=== PATIENT | male | born 2000 | race Caucasian/White ===

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

== ENCOUNTER 2019-05-10 18:31 | Emergency (ER) | payer MEDICAID ==
[2019-05-10] MEDS ORDERED: DEXAMETHASONE SOD PHOS INJ 10 MG/1 ML VIAL IV ONE (20:30)
[2019-05-10] MEDS ORDERED: NORMAL SALINE 1000 ML 1,000 ML IV ONE (20:31)
[2019-05-10] MEDS ORDERED: KETOROLAC TROMETHAMINE INJ/PF 30 MG/1 ML SDV IV ONE (20:31)
[2019-05-10] MEDS ORDERED: ONDANSETRON HCL INJ/PF 4 MG/2 ML SDV IV ONE (20:31)
--- NOTE | 2019-05-10 20:33 | ER Document Report ---
ED General - General Chief Complaint: Sore Throat Stated Complaint: SORE THROAT Time Seen by Provider: 05/10/19 20:05 Notes: Patient is a 18-year-old male that comes emergency department for chief complaint of sick symptoms since yesterday. He states that it started with a sore throat and he also had pain in his right ear, now he also complains of pain in the front of his neck, he does have pain with swallowing, and he has been vomiting. He states that he vomited a lot yesterday but this is significantly reduced today although he still has not been able to eat anything. He states he has been able to drink fluids but every time he tries to lay he vomits. He denies pain in his abdomen at this time. Denies shortness of breath with co ughing. He denies headache. He denies fever. Father at bedside. No obvious sick contacts. No past medical history reported. TRAVEL OUTSIDE OF THE [place] IN LAST 30 DAYS: No - Related Data Allergies/Adverse Reactions: No Known Allergies Allergy (Verified 05/10/19 18:32) Past Medical History - General Information source: Patient - Social History Smoking Status: Current Some Day Smoker Chew tobacco use (# tins/day): No Frequency of alcohol use: None Drug Abuse: None Lives with: Family Family History: Reviewed & Not Pertinent Patient has suicidal ideation: No Patient has homicidal ideation: No Pulmonary Medical History: Reports: Hx Asthma Renal/ Medical History: Reports: Hx Hydrocele. Denies: Hx Peritoneal Dialysis Musculoskeletal Medical History: Reports Hx Musculoskeletal Trauma Psychiatric Medical History: Reports: Hx Attention Deficit Hyperactivity Disorder Past Surgical History: Reports: Hx Testicular Surgery - Removal bilaterally - Immunizations Immunizations up to date: Yes Hx Diphtheria, Pertussis, Tetanus Vaccination: Yes Review of Systems - Review of Systems Constitutional: See HPI EENT: See HPI Cardiovascular: No symptoms reported Respiratory: No symptoms reported Gastrointestinal: See HPI Genitourinary: No symptoms reported Male Genitourinary: No symptoms reported Musculoskeletal: No symptoms reported Skin: No symptoms reported Hematologic/Lymphatic: No symptoms reported Neurological/Psychological: No symptoms reported Physical Exam - Vital signs Vitals: Temp Pulse Resp BP Pulse Ox 98.0 F 103 H 16 107/61 98 05/10/19 18:40 05/10/19 18:40 05/10/19 18:40 05/10/19 18:40 05/10/19 18:40 - Notes Notes: GENERAL: Alert, interacts well. No acute distress. HEAD: Normocephalic, atraumatic. EYES: Pupils equal, round, and reactive to light. Extraocular movements intact. ENT: Oral mucosa moist, tongue midline. Exudative pharyngitis worse on the left. Airway patent. Nares patent, no nasal septal hematoma, TM's intact. NECK: Full range of motion. Supple. Trachea midline. Anterior cervical adenopathy bilaterally, normal submandibular area. LUNGS: Clear to auscultation bilaterally, no wheezes, rales, or rhonchi. No respiratory distress. HEART: Regular rate and rhythm. No murmur ABDOMEN: Soft, non-tender. Non-distended. Bowel sounds present in all 4 quadrants. GENITOURINARY: Deferred EXTREMITIES: Moves all 4 extremities spontaneously. No edema, normal radial and dorsalis pedis pulses bilaterally. No cyanosis. BACK: no cervical, thoracic, lumbar midline tenderness. No saddle anesthesia, normal distal neurovascular exam. Moves all extremities in full range of motion. NEUROLOGICAL: Alert and oriented x3. Normal speech. Cranial nerves II through XII grossly intact. PSYCH: Normal affect, normal mood. SKIN: Warm, dry, normal turgor. No rashes or lesions noted. Course - Re-evaluation Re-evalutation: Patient with obvious exudative pharyngitis on exam, clear airway, no evidence of abscess. Strep is negative, mono negative, however CBC shows leukocytosis with elevation of neutrophils. No bandemia. Unremarkable work-up and evaluation otherwise. Abdomen is soft and benign. Patient was given IV fluids, dexamethasone, Toradol. He states he feels great on reevaluation. He is able to tolerate p.o. without difficulty. I definitely do not suspect acute abdomen based on his presentation. Discussed options. Because of the leukocytosis, anterior cervical adenopathy, lack of splenomegaly, and general appearance of strep we did agree to treat patient with antibiotics. Discussed follow-up and return precautions with patient and father at bedside. They state understanding and agreement. - Vital Signs Vital signs: Temp Pulse Resp BP Pulse Ox 99.5 F 90 15 109/60 98 05/10/19 22:41 05/10/19 22:41 05/10/19 22:41 05/10/19 22:41 05/10/19 22:41 - Laboratory Result Diagrams: 05/10/19 21:05 05/10/19 21:05 Laboratory results interpreted by me: 05/10/19 21:05 WBC 12.4 H Absolute Neuts (auto) 9.2 H Discharge - Discharge Clinical Impression: Exudative pharyngitis, Anterior cervical lymphadenopathy Vomiting Qualifiers: Vomiting type: unspecified Vomiting Intractability: non-intractable Nausea presence: without nausea Qualified Code(s): R11.11 - Vomiting without nausea Condition: Stable Disposition: HOME, SELF-CARE Additional Instructions: Your evaluation shows a throat infection, based on your work-up I suspect this is bacterial, as result we are treating with Keflex for this. You have been treated with dexamethasone as well which should last in your system for several days. Take Tylenol and ibuprofen for pain, hydrate, and rest. Symptoms should resolve with time. Follow-up with primary care. Return if you worsen including spiking fever, difficulty swallowing or breathing, return vomiting, or any other concerning or worsening symptoms. Prescriptions: Cephalexin Monohydrate [Keflex 500 mg Capsule] 500 mg PO BID 10 Days #20 capsule
[2019-05-10 21:25] LABS: ABSOLUTE LYMPHOCYTES (AUTO) 2.1 10^3/uL (0.5-4.7); ABSOLUTE NEUT (AUTO) 9.2 10^3/uL (1.7-8.2); BASOPHILS % (AUTO) 0.4 % (0-2); EOSINOPHILS % (AUTO) 0.4 % (0-6); HEMATOCRIT 40.3 % (37.9-51.0); MEAN CORPUSCULAR HGB CONC 34.9 g/dL (32.0-36.0); MEAN CORPUSCULAR VOLUME 83 fl (80-97); MONOCYTES % (AUTO) 8.2 % (3-13); PLATELET COUNT 229 10^3/uL (150-450); RED BLOOD COUNT 4.84 10^6/uL (4.35-5.55); RED CELL DISTRIBUTION WIDTH 13.3 % (11.5-14.0); TOTAL CELLS COUNTED % (AUTO) 100 %; WHITE BLOOD COUNT 12.4 10^3/uL (4.0-10.5)
[2019-05-10 21:43] LABS: ANION GAP 15 (5-19); BLOOD UREA NITROGEN 10 mg/dL (7-20); CARBON DIOXIDE 25 mmol/L (22-30); CHLORIDE 99 mmol/L (98-107); GLUCOSE 80 mg/dL (75-110); POTASSIUM 3.8 mmol/L (3.6-5.0)
[2019-05-10] MEDS ORDERED: CEPHALEXIN 500 MG CAPSULE PO ONE (22:12)
[2019-05-10 22:44] VITALS: BP 109/60
== END 2019-05-10 22:40 | disposition home or self-care (01) ==
LOC: ER 18:31
DX: J02.9 Acute pharyngitis, unspecified (principal); R59.0 Localized enlarged lymph nodes; R11.11 Vomiting without nausea; H92.01 Otalgia, right ear; F17.200 Nicotine dependence, unspecified, uncomplicated
CPT/HCPCS: 36415; 87070; 87880; 85025; 86308; 80048; J1885; J2405; J7030; J1100

== ENCOUNTER 2019-09-21 20:16 | Emergency (ER) | payer MEDICAID ==
[2019-09-21 20:24] VITALS: BP 113/78
--- NOTE | 2019-09-21 20:47 | ER Document Report ---
HPI - HPI Time Seen by Provider: 09/21/19 20:34 Context: Patient is 18-year-old male who presents to the emergency department with a chief complaint of a sore throat. His sore throat started yesterday. Denies any fever that he knows of. He has been taking Tylenol and it has helped only a little bit. Father denies any past medical history. He does not take any other medications. - CONSTITUTIONAL Constitutional: REPORTS: Chills - EENT EENT: REPORTS: Sore Throat. DENIES: Ear Pain, Nasal Drainage-Clear, Nasal Drainage-Purulent, Congestion, Eye problems - NEURO Neurology: DENIES: Headache, Weakness, Vision blurred, Dizzinesss / Vertigo - CARDIOVASCULAR Cardiovascular: DENIES: Chest pain - RESPIRATORY Respiratory: DENIES: Trouble Breathing, Coughing - GASTROINTESTINAL Gastrointestinal: DENIES: Abdominal Pain, Nausea, Patient vomiting - MUSCULOSKELETAL Musculoskeletal: DENIES: Extremity pain - DERM Skin Color: Normal Skin Problems: None Past Medical History - General Information source: Patient - Social History Smoking Status: Unknown if Ever Smoked Family History: Reviewed & Not Pertinent Pulmonary Medical History: Reports: Hx Asthma Renal/ Medical History: Reports: Hx Hydrocele. Denies: Hx Peritoneal Dialysis Musculoskeletal Medical History: Reports Hx Musculoskeletal Trauma Psychiatric Medical History: Reports: Hx Attention Deficit Hyperactivity Disorder Past Surgical History: Reports: Hx Testicular Surgery - Removal bilaterally - Immunizations Immunizations up to date: Yes Hx Diphtheria, Pertussis, Tetanus Vaccination: Yes Vertical Provider Document - CONSTITUTIONAL Agree With Documented VS: Yes Exam Limitations: No Limitations General Appearance: No Apparent Distress - INFECTION CONTROL TRAVEL OUTSIDE OF THE [place] IN LAST 30 DAYS: No - HEENT HEENT: Atraumatic, Normocephalic, PERRLA, Pharyngeal Exudate, Pharyngeal Tenderness, Pharyngeal Erythema. negative: Tympanic Membrane Red, Tympanic Membrane Bulging - NECK Neck: Normal Inspection, Lymphadenopathy-Left, Lymphadenopathy-Right - RESPIRATORY Respiratory: Breath Sounds Normal, No Respiratory Distress - CARDIOVASCULAR Cardiovascular: Regular Rate, Regular Rhythm Pulses: Normal: Radial - NEURO Level of Consciousness: Awake, Alert, Appropriate Motor/Sensory: No Motor Deficit, No Sensory Deficit - DERM Integumentary: Warm, Dry, No Rash Course - Re-evaluation Re-evalutation: 09/21/19 21:59 Presentation of several days of sore throat in an otherwise well-appearing patient. Patient has exudative pharyngitis. History and exam are not co nsistent with a retropharyngeal abscess or peritonsillar abscess. Airway is patent. No difficulty handling oral secretions. Vitals within normal limits. Patient has been treated with an IM dose of penicillin. At this time will discharge with return precautions and follow-up recommendations. Verbal discharge instructions given a the bedside and opportunity for questions given. Medication warnings reviewed. Patient is in agreement with this plan and has verbalized understanding of return precautions and the need for primary care follow-up. - Vital Signs Vital signs: Temp Pulse Resp BP Pulse Ox 99.3 F 95 H 16 113/78 98 09/21/19 20:22 09/21/19 20:22 09/21/19 20:22 09/21/19 20:22 09/21/19 20:22 Discharge - Discharge Clinical Impression: Exudative pharyngitis Condition: Stable Disposition: HOME, SELF-CARE Instructions: Sore Throat ([facility]) Additional Instructions: You have been diagnosed with exudative pharyngitis. You have been treated with a dose of penicillin here in the emergency department and do not need any additional antibiotics. You have also been given a dose of steroids to help with your throat discomfort. Please continue to take ibuprofen 600 mg every 6 hours or Tylenol 1000 mg every 6 hours as needed for throat discomfort. You can also gargle with salt water. Continue to drink plenty of fluids. Follow-up with your primary care doctor in the next several days. Return if you become unable to swallow, have difficulty breathing, pass out, have persistent vomiting that prevents you from being able to tolerate fluids, or have any other symptoms that are concerning to you. Referrals: KLAUS MEJIAS MD [Primary Care Provider] - Follow up as needed
[2019-09-21] MEDS ORDERED: DEXAMETHASONE SOD PHOS INJ 10 MG/1 ML VIAL IM ONE (21:55)
[2019-09-21] MEDS ORDERED: PENICILLIN G BENZATHINE 1.2 MILLION UNIT/2 ML DISP.SYRIN IM ONE (21:55)
== END 2019-09-21 22:10 | disposition home or self-care (01) ==
LOC: ER 20:16
DX: J02.9 Acute pharyngitis, unspecified (principal)
CPT/HCPCS: 99283; 96372; 87070; 87880; J0561; J1100

== ENCOUNTER 2019-09-27 07:43 | Emergency (ER) | payer MEDICAID ==
[2019-09-27] MEDS ORDERED: DEXAMETHASONE 4 MG TABLET PO ONE (09:29)
[2019-09-27] MEDS ORDERED: IBUPROFEN 600 MG TABLET PO ONE (09:29)
[2019-09-27] MEDS ORDERED: PENICILLIN V POTASSIUM 500 MG TABLET PO ONE (09:35)
--- NOTE | 2019-09-27 09:42 | ER Document Report ---
ED ENT - General Chief Complaint: Sore Throat Stated Complaint: SORE THROAT Time Seen by Provider: 09/27/19 09:11 Notes: HPI: 18-year-old male who presents with a sore throat with painful swallowing starting 1 week ago. He was seen here on the and given an IM penicillin shot. Patient states it transiently helped and he started to develop a sore throat again. No fevers above 100.0. No vomiting or diarrhea. He is able to swallow secretions. He is able to eat and drink it is just painful. No cough, sore throat, or chest pain. ROS: See HPI All other review of systems reviewed and otherwise negative Reviewed vital signs and nursing note as charted by RN. PHYSICAL EXAM: CONSTITUTIONAL: Alert and oriented and responds appropriately to questions. Well-appearing; well-nourished HEAD: Normocephalic; atraumatic EYES: PERRL; Conjunctivae clear, sclerae non-icteric ENT: Normal nose; no rhinorrhea; posterior pharyngeal erythema with some peritonsillar exudate bilaterally without any peritonsillar swelling. Midline nonswollen uvula NECK: Supple without meningismus; non-tender; nonfluctuant nontender cervical anterior lymphadenopathy, no masses ABD/PEL: Patient has no abdominal discomfort or palpable splenomegaly. SKIN: No acute lesions noted NEURO: CN 2-12 intact; 5/5 bilateral upper and lower extremity strength with sensation intact to light touch PSYCH: The patient's mood and manner are appropriate. Grooming and personal hygiene are appropriate. TRAVEL OUTSIDE OF THE [place] IN LAST 30 DAYS: No - Related Data Allergies/Adverse Reactions: No Known Allergies Allergy (Verified 09/27/19 07:52) Past Medical History - Social History Smoking Status: Former Smoker Chew tobacco use (# tins/day): No Frequency of alcohol use: None Drug Abuse: None Family History: Reviewed & Not Pertinent Patient has suicidal ideation: No Patient has homicidal ideation: No Pulmonary Medical History: Reports: Hx Asthma Renal/ Medical History: Reports: Hx Hydrocele. Denies: Hx Peritoneal Dialysis Musculoskeletal Medical History: Reports Hx Musculoskeletal Trauma Psychiatric Medical History: Reports: Hx Attention Deficit Hyperactivity Disorder Past Surgical History: Reports: Hx Testicular Surgery - Removal bilaterally - Immunizations Immunizations up to date: Yes Hx Diphtheria, Pertussis, Tetanus Vaccination: Yes Physical Exam - Vital signs Vitals: Temp Pulse Resp BP Pulse Ox 99.4 F 120 H 18 108/72 96 09/27/19 07:47 09/27/19 07:47 09/27/19 07:47 09/27/19 07:47 09/27/19 07:47 Course - Re-evaluation Re-evalutation: 09/27/19 09:41 Given the history and physical I do not see any signs or symptoms of tracheitis, peritonsillar abscess, or epiglottitis. Patient looks extremely well. Vital signs as recorded. For comfort I will provide a dose of Decadron as well as start the patient on antibiotics with strict return precautions and ENT follow- up. 09/27/19 11:25 [place] is negative. Patient will be discharged home. Heart rate is currently 95. ENT follow-up has been provided. - Vital Signs Vital signs: Temp Pulse Resp BP Pulse Ox 99.4 F 120 H 18 108/72 96 09/27/19 07:47 09/27/19 07:47 09/27/19 07:47 09/27/19 07:47 09/27/19 07:47 Discharge - Discharge Clinical Impression: Pharyngitis Qualifiers: Pharyngitis/tonsillitis etiology: unspecified etiology Qualified Code(s): J02.9 - Acute pharyngitis, unspecified Condition: Good Disposition: HOME, SELF-CARE Additional Instructions: Come back immediately for any worsening pain, difficulty breathing or swallowing, swelling of the face or neck, or any other acute problems. Please follow-up with the ENT physician that we have provided. Prescriptions: Penicillin V Potassium [Penicillin Vk 500 mg Tablet] 500 mg PO BID #20 tablet Referrals: JOSH BILLINGS DO [ASSOCIATE] - Follow up as needed
[2019-09-27 11:43] VITALS: BP 134/81
== END 2019-09-27 11:42 | disposition home or self-care (01) ==
LOC: ER 07:43
DX: J02.9 Acute pharyngitis, unspecified (principal); R13.10 Dysphagia, unspecified; Z87.891 Personal history of nicotine dependence; J45.909 Unspecified asthma, uncomplicated
CPT/HCPCS: 99283; 36415; 86308; J3490 ×3; J8540